=== PATIENT | female | born 1950 ===

== ENCOUNTER 2024-08-15 06:58 | Day surgery (SDC) | payer OTHER ==
[2024-08-12 10:09] VITALS: BP 160/84
[~2024-08-15] VITALS: Ht 162.6 cm; Wt 99.8 kg
[~2024-08-15 06:58] MED LIST: HYZAAR 100-12.1 EACH PO
[2024-08-15] MEDS ORDERED: POVIDONE-IODINE 118 ML BOTT TOP ONE (09:27)
[2024-08-15] MEDS ORDERED: hydrALAZINE HCL 20 MG VIAL ONE ×2 (11:08→13:21)
[2024-08-15] MEDS ORDERED: MORPHINE SULFATE 4 MG/ML VIAL IV PRN (11:30)
[2024-08-15] MEDS ORDERED: ACETAMINOPHEN 500 MG GEL..CAP PO ONE (11:30)
[2024-08-15] MEDS ORDERED: ENALAPRILAT DIHYDRATE 1.25 MG/ML VIAL IV ONE ×2 (12:25→13:02)
[2024-08-15] MEDS ORDERED: hydrALAZINE HCL 20 MG VIAL IV ONE (13:30)
== END 2024-08-15 14:45 | disposition home or self-care (01) ==
LOC: CIR.AMB 06:58
PROVIDERS: ATTEND Obstetrics & Gynecology
DX: N84.0 Polyp of corpus uteri (principal); N95.0 Postmenopausal bleeding; Z88.6 Allergy status to analgesic agent